=== PATIENT | male | born 1940 | race Caucasian/White ===

== ENCOUNTER 2018-05-01 08:24 | Inpatient (IN) | payer MEDICARE ==
[~2018-05-01] VITALS: Ht 185.4 cm; Wt 104.0 kg
[~2018-05-01 08:24] MED LIST: ATOR10TA PO; BETA2500 PO; CALC500T54 PO; CELE100C PO; GLUC1TAB44 PO; MULT-658 PO; OSEL6SUS2 PO; OSEL75CA PO; VITA400C6 PO
--- NOTE | 2018-05-01 08:52 | RAD ---
CT scan of the head without contrast 05/01/2018 Clinical History: Right-sided weakness. Technique: Unenhanced, contiguous, 5 mm axial sections were obtained through the head. One or more of the following individualized dose reduction techniques were utilized for this study: 1. Automated exposure control. 2. Adjustment of the mA and/or kV according to patient size. 3. Use of iterative reconstruction technique. Findings: No previous imaging studies are available for comparison. There is generalized parenchymal atrophy. Areas of decreased attenuation are seen within the periventricular and subcortical white matter of both cerebral hemispheres consistent with areas of small vessel ischemic disease. No acute parenchymal abnormality is seen. No extra-axial fluid collection is noted. No skull fracture is seen. Impression: No acute intracranial abnormality is seen. This result was called to Dr. Herring at 0846 hours. Electronically signed by: Hussein Madera MD (05/01/2018 8:48 AM) [email or web address]
[2018-05-01 09:08] LABS: BASO % 1 % (0-3); EOS # 0.3 x10^3/uL (0.0-0.7); EOS % 4 % (0-3); HEMATOCRIT 47.2 % (39.0-53.0); HEMOGLOBIN 15.9 g/dL (13.0-17.5); LYMPH # 1.4 x10^3/uL (1.0-4.8); LYMPH % 19 % (24-48); MEAN CORPUSCULAR HEMOGLOBIN 32 pg (25-35); MEAN CORPUSCULAR HGB CONC 34 g/dL (31-37); MEAN CORPUSCULAR VOLUME 94 fL (79-100); MONO # 0.7 x10^3/uL (0.0-1.1); MONO % 10 % (0-9); NEUT # 4.8 x10^3uL (1.8-7.7); NEUT % 66 % (31-73); PLATELET COUNT 157 x10^3/uL (140-400); RED BLOOD COUNT 5.04 x10^6/uL (4.30-5.70); RED CELL DISTRIBUTION WIDTH 13.9 % (11.5-14.5); WHITE BLOOD COUNT 7.3 x10^3/uL (4.0-11.0)
[2018-05-01 09:24] LABS: ALBUMIN 3.8 g/dL (3.4-5.0); ALBUMIN/GLOBULIN RATIO 1.3 (1.0-1.7); CALCIUM 9.3 mg/dL (8.5-10.1); CREATININE 1.1 mg/dL (0.7-1.3); GFR 65.3; POTASSIUM 3.9 mmol/L (3.5-5.1); TOTAL BILIRUBIN 0.9 mg/dL (0.2-1.0); TOTAL PROTEIN 6.8 g/dL (6.4-8.2)
--- NOTE | 2018-05-01 09:57 | PHYS DOC ---
Past History Past Medical History: CAD, Hypertension, Other Past Surgical History: Other Alcohol Use: Rarely Drug Use: None Adult General Chief Complaint Chief Complaint: facial numbness [facility] HPI 77-year-old male patient complaining of right side of face and upper extremity numbness that started at 0745 today. Patient states he felt numbness of right side of face and right upper extremity after he moved his head suddenly without weakness, headache, nausea and vomiting, blurred vision, lower extremity numbness or weakness. Patient denies history of the same problem. Review of Systems Review of Systems Constitutional: Denies fever or chills [] Eyes: Denies change in visual acuity, redness, or eye pain [] HENT: Denies nasal congestion or sore throat [] Respiratory: Denies cough or shortness of breath [] Cardiovascular: No additional information not addressed in HPI [] GI: Denies abdominal pain, nausea, vomiting, bloody stools or diarrhea [] : Denies dysuria or hematuria [] Musculoskeletal: Denies back pain or joint pain [] Integument: Denies rash or skin lesions [] Neurologic: Denies headache, focal weakness , reports sensory changes [] Endocrine: Denies polyuria or polydipsia [] All other systems were reviewed and found to be within normal limits, except as documented in this note. Allergies Allergies Allergies Coded Allergies Type Severity Reaction Last Updated Verified No Known Drug Allergies 06/28/16 No Physical Exam Physical Exam Constitutional: Well developed, well nourished, no acute distress, non-toxic appearance. [] HENT: Normocephalic, atraumatic, bilateral external ears normal, oropharynx moist, no oral exudates, nose normal. [] Eyes: PERRLA, EOMI, conjunctiva normal, no discharge. [] Neck: Normal range of motion, no tenderness, supple, no stridor. [] Cardiovascular: Irregularly irregular rhythm, no murmur [] Lungs & Thorax: Bilateral breath sounds clear to auscultation [] Abdomen: Bowel sounds normal, soft, no tenderness, no masses, no pulsatile masses. [] Skin: Warm, dry, no erythema, no rash. [] Back: No tenderness, no CVA tenderness. [] Extremities: No tenderness, no cyanosis, no clubbing, ROM intact, no edema. [] Neurologic: Alert and oriented X 3, normal motor function, subjective paresthesias of right side of face without paresthesia of right upper extremity , no focal deficits noted. NIH scale of 1 [] Psychologic: Affect normal, judgement normal, mood normal. [] Current Patient Data Lab Results Laboratory Tests Test 05/01/18 08:47 White Blood Count 7.3 x10^3/uL (4.0-11.0) Red Blood Count 5.04 x10^6/uL (4.30-5.70) Hemoglobin 15.9 g/dL (13.0-17.5) Hematocrit 47.2 % (39.0-53.0) Mean Corpuscular Volume 94 fL (79-100) Mean Corpuscular Hemoglobin 32 pg (25-35) Mean Corpuscular Hemoglobin Concent 34 g/dL (31-37) Red Cell Distribution Width 13.9 % (11.5-14.5) Platelet Count 157 x10^3/uL (140-400) Neutrophils (%) (Auto) 66 % (31-73) Lymphocytes (%) (Auto) 19 % (24-48) L Monocytes (%) (Auto) 10 % (0-9) H Eosinophils (%) (Auto) 4 % (0-3) H Basophils (%) (Auto) 1 % (0-3) Neutrophils # (Auto) 4.8 x10^3uL (1.8-7.7) Lymphocytes # (Auto) 1.4 x10^3/uL (1.0-4.8) Monocytes # (Auto) 0.7 x10^3/uL (0.0-1.1) Eosinophils # (Auto) 0.3 x10^3/uL (0.0-0.7) Basophils # (Auto) 0.0 x10^3/uL (0.0-0.2) Prothrombin Time 10.9 SEC (9.4-11.4) Prothrombin Time INR 1.1 (0.9-1.1) PTT 26 SEC (23-33) Sodium Level 138 mmol/L (136-145) Potassium Level 3.9 mmol/L (3.5-5.1) Chloride Level 106 mmol/L (98-107) Carbon Dioxide Level 27 mmol/L (21-32) Anion Gap 5 (6-14) L Blood Urea Nitrogen 17 mg/dL (8-26) Creatinine 1.1 mg/dL (0.7-1.3) Estimated GFR (Cockcroft-Gault) 65.3 BUN/Creatinine Ratio 15 (6-20) Glucose Level 108 mg/dL (70-99) H Calcium Level 9.3 mg/dL (8.5-10.1) Total Bilirubin 0.9 mg/dL (0.2-1.0) Aspartate Amino Transferase (AST) 22 U/L (15-37) Alanine Aminotransferase (ALT) 24 U/L (16-63) Alkaline Phosphatase 103 U/L (46-116) Troponin I Quantitative < 0.017 ng/mL (0-0.055) Total Protein 6.8 g/dL (6.4-8.2) Albumin 3.8 g/dL (3.4-5.0) Albumin/Globulin Ratio 1.3 (1.0-1.7) EKG EKG EKG interpreted by me. EKG at 0 9:15 8 showed atrial fibrillation at rate of 54 , leftward axis, low voltage QRS, no acute ST and T-wave abnormalities Radiology/Procedures Radiology/Procedures [][place] [address] IMAGING REPORT Signed PATIENT: DIAN LEVY ACCOUNT: [id number] : 1940 LOCATION: ER AGE: 77 SEX: M EXAM STATUS: REG ER ORD. PHYSICIAN: HALLE BRITO MD REASON: right-sided weakness PROCEDURE: CT CODE STROKE HEAD WO CT scan of the head without contrast 05/01/2018 Clinical History: Right-sided weakness. Technique: Unenhanced, contiguous, 5 mm axial sections were obtained through the head. One or more of the following individualized dose reduction techniques were utilized for this study: 1. Automated exposure control. 2. Adjustment of the mA and/or kV according to patient size. 3. Use of iterative reconstruction technique. Findings: No previous imaging studies are available for comparison. There is generalized parenchymal atrophy. Areas of decreased attenuation are seen within the periventricular and subcortical white matter of both cerebral hemispheres consistent with areas of small vessel ischemic disease. No acute parenchymal abnormality is seen. No extra-axial fluid collection is noted. No skull fracture is seen. Impression: No acute intracranial abnormality is seen. This result was called to Dr. Brito at 0846 hours. Electronically signed by: Hussein Madera MD (05/01/2018 8:48 AM) [facility] DICTATED AND SIGNED BY: HUSSEIN MADERA MD DATE: 05/01/18 0845 CC: HALLE BRITO MD; KILEY VASQUEZ ~ Course & Med Decision Making Course & Med Decision Making Pertinent Labs and Imaging studies reviewed. (See chart for details) Evaluation of patient in ER showed 77-year-old male patient with complaining of sudden onset of right side of face and upper extremity numbness at 0745 with NIH scale of 1. Code stroke was activated and patient had unremarkable CT head and labs and treated with aspirin. EKG showed atrial fibrillation with rate of 54 without history of atrial fibrillation. Dr. Patterson informed at 1018 and agreed to plan of admission. Plan to consult neurology and cardiology and admit patient to telemetry bed. [] Dragon Disclaimer Dragon Disclaimer This electronic medical record was generated, in whole or in part, using a voice recognition dictation system. Departure Departure: Impression: Primary Impression: TIA (transient ischemic attack) Additional Impressions: Paresthesia Atrial fibrillation Disposition: ADMITTED INPATIENT (At 1015) Condition: STABLE Referrals: KILEY VASQUEZ (PCP) BRIANNA BURROWS MD Patient Instructions: Transient Ischemic Attack Additional Instructions: Follow-up with on-call neurologist in 2 or 3 days Return to ER if not getting better Critical Care Time Critical care time was [60] minutes exclusive of procedures. Problem Qualifiers HALLE BRITO MD May 01, 2018 09:57
[2018-05-01] MEDS ORDERED: ASPIRIN 81 MG TAB.CHEW PO ONE (10:00)
--- NOTE | 2018-05-01 10:35 | EKG ---
[address] [address] Test Date: 2018-05-01 Test Time: 09:59:16 Pat Name: DIAN LEVY Department: Room: Gender: M [employer]ynthetic Department Supervisor: FLORA : 1940 Requested By: HALLE BRITO Order Number: [id number] Reading MD: Matt Perry MD Measurements Intervals [place] Rate: 54 P: LA: QRS: -28 QRSD: 72 T: 3 QT: 452 QTc: 430 Interpretive Statements ATRIAL FIBRILLATION WITH CONTROLLED VENTRICULAR RESPONSE NON-SPECIFIC ST/T CHANGES Electronically Signed On 05-04-2018 9:42:38 CDT by Matt Perry MD
[2018-05-01 14:59] VITALS: BP 119/67
--- NOTE | 2018-05-01 15:14 | HP ---
ADMIT DATE: 05/01/2018 HISTORY OF PRESENT ILLNESS: This is a 77-year-old male patient who came to the Emergency Room complaining of right-sided facial numbness and tingling, right upper extremity numbness that lasted for almost about 3 hours. He denied any nausea or vomiting. Denied any headache. Denied any blurring of vision or weakness. He said that he thought he was sitting in an awkward position, so he took his dog for a walk, but tingling and numbness continued and therefore, he decided to come to the Emergency Room for further evaluation. He has never had experienced something like that, did not have any unsteady gait or double vision. He was extensively investigated in the Emergency Room. His CT scan showed no acute intracranial abnormalities seen and was admitted for further evaluation. While in the Emergency Room, he had an EKG, which showed that he was in atrial fibrillation with slow ventricular response and therefore, he was admitted to consult the community service coordinator and also the neurologist. PAST MEDICAL HISTORY: Significant for hypertension and hyperlipidemia. He apparently was here before in ____ and admitted with acute congestive heart failure and at that time, he was started on aspirin, beta milton and they recommended further ischemic workup. He said that he was admitted to [facility] and was seen by Dr. Brian, although he was actually discharged with non-ST segment elevation myocardial infarction as well as ischemic cardiomyopathy with ejection fraction of 40% and he was transferred at that time to [facility] with the plan at that time to do cardiac catheterization. PAST SURGICAL HISTORY: Significant for prostatectomy, back surgery, bilateral inguinal hernia repair, right total knee arthroplasty, colonoscopy and polypectomy. ALLERGIES: He has no known drug allergies. MEDICATIONS: He is currently on the following medications: He is currently on lisinopril 2.5 mg once a day, Lipitor 20 mg at bedtime, metoprolol tartrate 25 mg twice a day, aspirin 81 mg once a day. He is also on glucosamine chondroitin 1200 mg twice a day, calcium 600 mg twice a day, Centrum Silver 1 tablet once a day, vitamin C 500 mg twice a day and beta carotene 25,000 daily. FAMILY HISTORY: He has one younger brother who has apparently skin cancer and depression. His father at the age of 73 and mother at the age of 88. He does not know the cause of their . SOCIAL HISTORY: He is , has 2 sons. He used to smoke cigars, quit about 8-10 years ago. He continued to drink alcohol. He drinks about 3-4 beers a week. 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 REVIEW OF SYSTEMS: The patient denied any blurring of vision, cataract, glaucoma or macular degeneration. Did complain of however being started to have difficulty hearing, but denied any earache or tinnitus. Denied any nosebleeds, stuffy nose or postnasal drip. Denied any sore throat, sore tongue, toothache, hoarseness of voice or difficulty swallowing. He did say that he intentionally lost about 70 pounds, but denied any nausea, vomiting, diarrhea or constipation. Denied any hematemesis, melena or hematochezia. Denied any dysuria, frequency or hematuria. Did complain of nocturia. He said he goes to the bathroom twice night-time. Denied any chest pain, shortness of breath, orthopnea or paroxysmal nocturnal dyspnea. Denied any cough, phlegm or hemoptysis. Denied any chills, rigors or fever. Denied any dizziness, light-headedness, or vertigo. PHYSICAL EXAMINATION: GENERAL: On arrival to the Emergency Room, he actually looked well and was clearly in no apparent respiratory distress. No pallor, jaundice or cyanosis. No lymphadenopathy, no thyromegaly, no jugular venous distension. No lower limb edema. VITAL SIGNS: His heart rate was 56, blood pressure was 131/77, temperature was 98.1, respiratory rate was 16, and oxygen saturation was 98% on room air. HEAD, EYES, EARS, NOSE AND THROAT: Showed normocephalic, atraumatic. NECK: Supple. HEART: Showed normal first and second sounds. No gallop, rub or murmur. CHEST: Clear to auscultation. No crepitation or rhonchi. ABDOMEN: Distended, soft, nontender. NEUROLOGIC: He is awake, alert, responding appropriately. All his cranial nerves are intact. He moves extremities without difficulty. He ambulates without assistance or assistive devices. By the time I saw him, all the numbness and tingling has completely subsided. He apparently was given aspirin in the Emergency Room. IMAGING DATA: EKG showed that he was in atrial fibrillation with slow ventricular response. ASSESSMENT AND PLAN: The plan is to do 2 more sets of cardiac enzyme. We will arrange for him to have an echocardiogram, bilateral carotid Doppler ultrasound. We will check his fasting lipid profile. We will consult with cardiology team as well as the neurologist. He probably needs to be started on Lovenox or perhaps Eliquis and decide on further management according to the finding. AUGUSTINE BARRERA MD DR: SAMIRA/steven JOB#: [id number] / [id number]
[2018-05-01] MEDS ORDERED: LISI2.5T PO (15:27)
[2018-05-01] MEDS ORDERED: METO25TA4 PO (15:27)
[2018-05-01] MEDS ORDERED: ASPI-630 PO (15:27)
[2018-05-01] MEDS ORDERED: ASCO500C9 PO (15:29)
--- NOTE | 2018-05-01 16:31 | PDOC2 ---
CONSULT Date of Admission DATE: 05/01/18 TIME: 16:29 Reason for Consult: TIA, Atrial fibrillation Problem List Problems Medical Problems: (1) Atrial fibrillation Status: Acute History of Present Illness Mr Martinez is a 77 year old male who presents with complaints of sudden onset of numbness of his left face, shoulder and part way down his right arm. Onset was at rest. No exacerbating or relieving factors. He reports at this time the numbness has mostly resolved with some residual in his right neck. He was noted to be in atrial fibrillation which he reports he was unaware of , so a consult was called. He denies any chest discomfort, dyspnea, congestive symptoms, or syncope. He reports rare lightheadedness on standing too quickly. He denies any palpitations. He does report some increased fatigue over the last 1-2 weeks but otherwise denies any significant decrease in functionality. Past Medical History Cardiovascular: HTN, hyperlipidemia, NSTEMI, ICM, CHF Respiratory: influenza HEENT: glaucoma Renal/: Prostate Ca. Musculoskeletal: osteoarthritis Echo 09/10/16 Left ventricle systolic function is low normal. The Ejection Fraction is 50-55%. There is normal LV segmental wall motion. Tissue Doppler imaging reveals abnormal (mild) left ventricular diastolic dysfunction. 07/01/16 FINDINGS 1. Hemodynamics: Left ventricular end-diastolic pressure of 11 mmHg. No pullback gradient across the aortic valve. 2. Left ventriculography: Mild global left ventricular systolic dysfunction with ejection fraction estimated at 40-45%. No significant mitral regurgitation seen. 3. Coronary angiography: a. The left main coronary artery arose from the left sinus of Valsalva, gave rise to the left anterior descending and left circumflex arteries and did not show any significant stenosis. b. The left anterior descending artery did not show any significant stenosis. c. The left circumflex artery did not show any significant stenosis. d. The right coronary artery was a large and dominant vessel arising from the right sinus of Valsalva that did showed 30% stenosis in the midsegment. Conclusion 1. Nonobstructive coronary artery disease 2. Mild global left ventricular systolic dysfunction with ejection fraction estimated at 40-45% Recommendations Medical Therapy Past Surgical History Hernia Repair, Other (knee replacement, prostatectomy) Family History non contributory Social History non smoker, no significant ETOH, no illicit drugs Current Medications Current Medications Aspirin (Children'S Aspirin) 324 mg 1X ONCE PO Last administered on 05/01/18at 10:00; Start 05/01/18 at 10:00; Stop 05/01/18 at 10:01; Status DC Apixaban (Eliquis) 5 mg BID PO ; Start 05/01/18 at 21:00 Metoprolol Tartrate (Lopressor) 25 mg BID PO ; Start 05/01/18 at 21:00 Vitamin E 400 unit DAILYWSUP PO ; Start 05/01/18 at 17:00 Aspirin (Children'S Aspirin) 81 mg DAILYWSUP PO ; Start 05/01/18 at 17:00 Atorvastatin Calcium (Lipitor) 20 mg QHS PO ; Start 05/01/18 at 21:00 Non-Formulary Medication (Beta-Carotene (Beta Carotene)) 25,000 unit DAILY PO ; Start 05/02/18 at 09:00; Status UNV Calcium Carbonate/ Glycine (Tums) 500 mg DAILY PO ; Start 05/02/18 at 09:00 Glucosamine/ Chondroitin (Glucosamine-Chondroitin 500/400mg) 1 cap BID PO ; Start 05/01/18 at 21:00 Lisinopril (Prinivil) 2.5 mg DAILY PO ; Start 05/02/18 at 09:00 Multivitamins/ Calcium (Thera-M Plus) 1 tab DAILY PO ; Start 05/02/18 at 09:00 Ascorbic Acid (Vitamin C) 1,000 mg DAILY PO ; Start 05/02/18 at 09:00 Active Scripts Active Reported Vitamin C (Ascorbic Acid) 500 Mg Capsule 1,000 Mg PO DAILY Lisinopril 2.5 Mg Tablet 1 Tab PO DAILY Metoprolol Tartrate 25 Mg Tablet 1 Tab PO BID Aspirin 81 Mg Tab.chew 81 Mg PO DAILYWSUP Skyohwx-Qyioq-Kow Complex Cplt (Gluc/Brandon-Msm#1/Vit C/Ryan/Bor) 1 Each Tablet 1 Each PO BID Vitamin E (Vitamin E (Dl,Tocopheryl Acet)) 400 Unit Capsule 400 Unit PO DAILYWSUP Centrum Silver Tablet (Multivits-Min/Fa/Lycopene/Lut) 1 Each Tablet 1 Each PO DAILY Beta Carotene (Beta-Carotene) 25,000 Unit Capsule 25,000 Unit PO DAILY Calcium (Calcium Carbonate) 500 Mg Tab.chew 500 Mg PO DAILY Lipitor (Atorvastatin Calcium) 10 Mg Tablet 2 Tab PO QHS Allergies: Coded Allergies: No Known Drug Allergies (Unverified , 06/28/16) Review of System as per HPI General: Alert, Oriented X3, Cooperative, No acute distress HEENT: Atraumatic, EOMI, Other (no carotid bruits) Lungs: Clear to auscultation Heart: Other (irregular rate and rhythm without gallops, clicks or rubs) Abdomen: Normal bowel sounds, Soft, No tenderness Extremities: No cyanosis, Normal pulses, Other (trace edeam) Neuro: Normal speech, Strength at 5/5 X4 ext Psych/Mental Status: Mental status NL, Mood NL VITALS Vital Signs Date Time Temp Pulse Resp B/P (MAP) Pulse Ox O2 Delivery O2 Flow Rate FiO2 05/01/18 14:59 58 18 119/67 (84) 97 Labs Laboratory Tests Test 05/01/18 08:47 05/01/18 13:16 White Blood Count 7.3 x10^3/uL (4.0-11.0) Red Blood Count 5.04 x10^6/uL (4.30-5.70) Hemoglobin 15.9 g/dL (13.0-17.5) Hematocrit 47.2 % (39.0-53.0) Mean Corpuscular Volume 94 fL (79-100) Mean Corpuscular Hemoglobin 32 pg (25-35) Mean Corpuscular Hemoglobin Concent 34 g/dL (31-37) Red Cell Distribution Width 13.9 % (11.5-14.5) Platelet Count 157 x10^3/uL (140-400) Neutrophils (%) (Auto) 66 % (31-73) Lymphocytes (%) (Auto) 19 % (24-48) Monocytes (%) (Auto) 10 % (0-9) Eosinophils (%) (Auto) 4 % (0-3) Basophils (%) (Auto) 1 % (0-3) Neutrophils # (Auto) 4.8 x10^3uL (1.8-7.7) Lymphocytes # (Auto) 1.4 x10^3/uL (1.0-4.8) Monocytes # (Auto) 0.7 x10^3/uL (0.0-1.1) Eosinophils # (Auto) 0.3 x10^3/uL (0.0-0.7) Basophils # (Auto) 0.0 x10^3/uL (0.0-0.2) Prothrombin Time 10.9 SEC (9.4-11.4) Prothromb Time International Ratio 1.1 (0.9-1.1) Activated Partial Thromboplast Time 26 SEC (23-33) Sodium Level 138 mmol/L (136-145) Potassium Level 3.9 mmol/L (3.5-5.1) Chloride Level 106 mmol/L (98-107) Carbon Dioxide Level 27 mmol/L (21-32) Anion Gap 5 (6-14) Blood Urea Nitrogen 17 mg/dL (8-26) Creatinine 1.1 mg/dL (0.7-1.3) Estimated GFR (Cockcroft-Gault) 65.3 BUN/Creatinine Ratio 15 (6-20) Glucose Level 108 mg/dL (70-99) Calcium Level 9.3 mg/dL (8.5-10.1) Total Bilirubin 0.9 mg/dL (0.2-1.0) Aspartate Amino Transf (AST/SGOT) 22 U/L (15-37) Alanine Aminotransferase (ALT/SGPT) 24 U/L (16-63) Alkaline Phosphatase 103 U/L (46-116) Troponin I Quantitative < 0.017 ng/mL (0-0.055) < 0.017 ng/mL (0-0.055) Total Protein 6.8 g/dL (6.4-8.2) Albumin 3.8 g/dL (3.4-5.0) Albumin/Globulin Ratio 1.3 (1.0-1.7) Images CT head - Impression: No acute intracranial abnormality is seen. EKG - unavailable Assessment/Plan 1. Atrial fibrillation with controlled ventricular response, suspect this in not new - Agree with Eliquis and continue rate control. Suggest outpatient MCT as he is somewhat bradycardic at this point. Will check echo. 2. TIA - neuro consulted 3. hypertension - resume home meds 4. hyperlipidemia - check lipids, continue statin. CAROLINA CONNOR APRN May 01, 2018 16:31
[2018-05-01] MEDS ORDERED: ASPIRIN 81 MG TAB.CHEW PO SCH (17:00)
[2018-05-01] MEDS ORDERED: VITAMIN E. 400 UNIT CAPSULE. PO SCH (17:00)
--- NOTE | 2018-05-01 18:31 | RAD ---
Bilateral Duplex Carotid Ultrasound Indication: Possible TIA Procedure: Two dimensional, duplex and color-flow images and spectral analysis are obtained of the carotid arteries bilaterally. Vertebral arteries are also imaged. Findings: Right Carotid: The 2 D images demonstrate mild plaquing with no evidence of significant narrowing. The color images are normal On the right ICA peak systolic velocity is 55 cm/sec. I The ICA/CCA ratio is 0.6 . Left Carotid: The 2 D images demonstrate mild plaquing with no evidence of significant narrowing. The color images are normal without turbulence or jet effect. On the left ICA peak systolic velocity is 38 cm/sec. The ICA/CCA ratio is 0.5 . There is a high bifurcation and the distal internal carotid artery on the left cannot be visualized. Vertebral Arteries: The right vertebral artery is normal with normal direction of flow. The left vertebral artery is normal with normal direction of flow. Impression: Normal carotid ultrasound with no hemodynamically significant stenosis. PQRS Compliance Statement - Stenosis calculations for CT, MR and conventional angiography are based upon measurement of the distal ICA diameter in accordance with the NASCET methodology. Stenosis calculations for carotid ultrasound studies are derived from validated velocity criteria which are known to correlate with the NASCET methodology. Electronically signed by: Javed Narvaez III, MD (05/01/2018 6:29 PM) [facility]
[2018-05-01 20:03] VITALS: BP 140/74
[2018-05-01] MEDS: GLUCOSAMINE/CHOND 500/400MG CAPSULE PO SCH (20:19)
[2018-05-01] MEDS: APIXABAN 5 MG TABLET. PO SCH (20:19)
[2018-05-01] MEDS ORDERED: ATORVASTATIN CALCIUM 20 MG TABLET PO SCH (21:00)
[2018-05-01] MEDS: METOPROLOL TART IMMED RELEASE 25 MG TABLET PO SCH (21:00)
[2018-05-02 05:53] LABS: CALCIUM 8.8 mg/dL (8.5-10.1); GFR 72.8; POTASSIUM 3.9 mmol/L (3.5-5.1)
[2018-05-02 06:05] VITALS: BP 108/68
[2018-05-02 08:16] VITALS: BP 104/65
[2018-05-02] MEDS: APIXABAN 5 MG TABLET. PO SCH (08:50)
[2018-05-02] MEDS: GLUCOSAMINE/CHOND 500/400MG CAPSULE PO SCH (08:51)
[2018-05-02] MEDS: METOPROLOL TART IMMED RELEASE 25 MG TABLET PO SCH (08:52)
[2018-05-02] MEDS ORDERED: LISINOPRIL 2.5 MG TABLET PO SCH (09:00)
[2018-05-02] MEDS ORDERED: MULTIVITAMIN with MINERAL TABLET. PO SCH (09:00)
[2018-05-02] MEDS ORDERED: BETA CAROTENE 25000 UNIT PO SCH (09:00)
[2018-05-02] MEDS ORDERED: ASCORBIC ACID 500 MG TABLET PO SCH (09:00)
[2018-05-02] MEDS ORDERED: CALCIUM CARBONATE 500 MG TAB.CHEW PO SCH (09:00)
[2018-05-02] MEDS ORDERED: CALCIUM CARBONATE 500 MG TAB.CHEW PO PRN (09:00)
[2018-05-02 11:00] VITALS: BP 115/77
--- NOTE | 2018-05-02 13:01 | PN ---
DATE: SUBJECTIVE: The patient denies any new medical neurological complaints. He denies headaches, visual disturbances, numbness, paresthesia, weakness or vertigo, dysarthria, dysphagia, or diplopia. OBJECTIVE: GENERAL: Well-developed, well-nourished white male, not in acute distress. VITAL SIGNS: Blood pressure 153/77, respiratory rate 18, pulse is 59, temperature 98.7, oxygen saturation is 97% on room air. HEENT: Normocephalic, atraumatic, otherwise unremarkable. NECK: Supple. Negative for carotid bruit, JVD, lymphadenopathy, or thyromegaly. LUNGS: Are clear to A and P. CARDIOVASCULAR: Regular rhythm, normal S1, S2. ABDOMEN: Soft. Bowel sounds positive. EXTREMITIES: Are negative for cyanosis, clubbing, or pitting edema. NEUROLOGIC: Normal mental status and intact cranial nerves. There is no focal motor or sensory deficit. Deep tendon reflexes are symmetric and hypoactive with absent Achilles responses. Gait and coordinations are normal. DIAGNOSTIC DATA: Carotid Doppler study revealed no evidence of significant stenosis. Echocardiogram was performed this morning, but the result is still pending. IMPRESSION: 1. Possible transient ischemic attack -- resolved without neurological deficit. 2. Multiple medical problems includes hypertension, hyperlipidemia, history of myocardial infarction without evidence of coronary artery disease by previous cardiac catheterization. 3. Atrial fibrillation, may have contributed to the transient ischemic attack. RECOMMENDATION: 1. Continue with current management initiated by Dr. Patterson including aspirin and Eliquis. 2. Continue with Cardiology recommendations for atrial fibrillation, otherwise the patient is neurologically intact. M Dana BURROWS MD DR: PORFIRIO/steven JOB#: [id number] / [id number]
[2018-05-02] MEDS ORDERED: APIX5TAB5 PO (14:03)
--- NOTE | 2018-05-02 15:22 | DS ---
DATE OF DISCHARGE: 05/02/2018 HISTORY OF PRESENT ILLNESS: The patient is a 77-year-old male patient, who came in yesterday with complaint of tingling and numbness in his right side of the face and right side of the right upper arm that has resolved without any residual neurological deficit. He was also found to be in atrial fibrillation with a slow ventricular response, so he was started on Eliquis. He was evaluated by the, does have a CT scan of the head which was unremarkable with no acute intracranial abnormality seen, has bilateral carotid Doppler ultrasound, which basically showed normal carotid ultrasound with no hemodynamically significant stenosis. He did have also an echocardiogram, the results of which is still pending at the time of this dictation. PHYSICAL EXAMINATION: GENERAL: When I examined him this afternoon, he was sitting, propped up comfortably in bed, in no apparent distress. He has no pallor, jaundice, cyanosis, or thyromegaly. No jugular venous distension. No lower limb edema. VITAL SIGNS: Her heart rate was 59, blood pressure was 115/77, temperature was 98.7, respiratory rate was 18, and oxygen saturation was 97%. HEENT: Examination of the head, eyes, ears, nose and throat showed normocephalic, atraumatic. NECK: Supple. HEART: Showed normal first and second heart sounds with no gallop, rub or murmur. CHEST: Clear to auscultation. No crepitation or rhonchi. ABDOMEN: Distended, soft, nontender. No guarding or rigidity. No organomegaly. Hernial orifices are intact. Bowel sounds normal. NEUROLOGIC: He was awake, alert, responding appropriately. All his cranial nerves are intact. EXTREMITIES: He moves extremities without difficulty. He ambulates without assistance or assistive devices. LABORATORY DATA: He has 3 sets of cardiac enzymes that were negative and ruled out myocardial infarction. His serum triglyceride was 74, total cholesterol 147, LDL was 79, VLDL was 14, and HDL was 54, ratio was 2. His serum sodium was 140, potassium 3.9, chloride 109, bicarbonate 26, anion gap of 5, BUN 15, creatinine 1, estimated GFR was 73 mL per minute. Her glucose was 108 and calcium was 8.8. DISCHARGE MEDICATIONS: The patient was discharged home to continue on following medications; apixaban 5 mg twice a day, ascorbic acid 5000 mg daily, aspirin 81 mg once a day, atorvastatin calcium 20 mg at bedtime, beta carotene 25,000 units daily, calcium carbonate 500 mg once a day, glucosamine chondroitin sulfate 1 tablet twice a day, lisinopril 2.5 mg once a day, metoprolol tartrate 25 mg twice a day, multivitamin with mineral 1 tablet once a day, and vitamin E 400 mg once a day. FINAL DISCHARGE DIAGNOSES: 1. Atrial fibrillation with controlled ventricular response. We added Eliquis for stroke prevention. 2. Transient ischemic attack, resolved with no residual neurological deficit. 3. Hypertension. 4. Hyperlipidemia. AUGUSTINE BARRERA MD DR: SAMIRA/steven JOB#: [id number] / [id number]
--- NOTE | 2018-05-02 16:28 | CONS ---
DATE OF CONSULTATION: 05/01/2018 NEUROLOGY CONSULTATION REFERRING PHYSICIAN: Dr. Patterson. REASON FOR CONSULTATION: Rule out TIA versus stroke. HISTORY OF PRESENT ILLNESS: This is a 77-year-old right-handed male, who was admitted through Emergency Room today after he presented with 3-hour of right facial numbness and paresthesia. The patient never had this problem before. He denies headaches, visual disturbances, slurred speech, weakness or dizziness. He denies chest pain, shortness of breath, palpitation, dysarthria or dysphagia. In the Emergency Room, the patient was found to have atrial fibrillation. The patient denies any previous cardiac arrhythmias. Initial nonenhanced head CT scan revealed no evidence of acute intracranial process, but showed small vessel ischemic changes in the white matter bilaterally. PAST MEDICAL HISTORY: Significant for hypertension, hyperlipidemia, congestive heart failure, history of myocardial infarction 2 years ago. He stated his cardiac catheterization revealed no evidence of coronary artery disease; however, a previous echocardiogram revealed ejection fraction of 40%. The patient has not been followed by a licensed marine engineer in the last 2 years. PAST SURGICAL HISTORY: Significant for lower back spine surgery, bilateral inguinal hernia repair, right total knee replacement, and colonoscopy required polypectomy. FAMILY HISTORY: Noncontributory. SOCIAL HISTORY: The patient is . He has 2 sons. He smokes cigars, but he quit 10 years ago. He drinks about 3 beers weekly. CURRENT HOME MEDICATIONS: Lisinopril 2.5 mg daily, Lipitor 20 mg daily, aspirin 81 mg daily, vitamin E and calcium and multivitamins. ALLERGIES: No known drug allergies. REVIEW OF SYSTEMS: A 10-point review of system was performed as mentioned above in the history of present illness, otherwise unremarkable. PHYSICAL EXAMINATION: GENERAL: Moderately obese white male, not in acute distress. He weighs 250 pounds. VITAL SIGNS: Blood pressure 119/67, respiratory rate 18, pulse is 58, oxygen saturation is 97% on room air. The pulse is irregular. HEENT: Normocephalic, atraumatic, otherwise unremarkable. NECK: Supple. Negative for carotid bruit, lymphadenopathy or thyromegaly. LUNGS: Clear to A and P. CARDIOVASCULAR: Regular rhythm. Normal S1, S2. There is no S3, S4 or murmur. ABDOMEN: Soft. Bowel sounds positive. EXTREMITIES: Negative for cyanosis, clubbing or pitting edema. NEUROLOGIC: Mental status: The patient is alert and oriented x 3. The speech is fluent. There is no language dysfunction. Memory, judgment, and abstract thinking are normal. The patient denies hallucination or delusion. Cranial nerves: Visual casillas are full. The pupils are reactive to light and accommodation. The extraocular movements are intact. There is no nystagmus. There is no facial motor or sensory deficit. Hearing is diminished over the right side. The palate is elevated symmetrically. Sternocleidomastoid muscles are powerful bilaterally. The patient shrugs his shoulders symmetrically, protrudes his tongue in the midline without fasciculation or atrophy. Motor examination: No focal muscle bulk was seen. The tone is normal. The strength is 5/5 throughout. Sensory examination: Revealed normal pinprick, light touch, vibratory and position senses. Deep tendon reflexes were symmetric and hypoactive with absent Achilles responses. Romberg sign is positive. Gait and coordinations are normal. LABORATORY DATA: CBC revealed white blood cells of 7300, hemoglobin 15.9, hematocrit 47.2, and platelet count 157,000. Chemistry revealed a sodium of 138, potassium 3.9, chloride 106, CO2 of 27, BUN 17, creatinine 1.1, glucose 108, calcium 9.3. Liver enzymes are normal and troponin level is normal. Liver enzymes are normal and troponin level is normal. Coagulation revealed PT 10.9 and INR of 1.1. IMPRESSION: 1. A 3-hour history of right facial numbness and paresthesia - resolved with otherwise and nonfocal neurological examination. Rule out transient ischemic attack. 2. Atrial fibrillation with slow ventricular response. The onset is uncertain, may have contributed to #1. 3. Multiple medical problems include history of hypertension, hyperlipidemia, remote myocardial infarction, gastroesophageal reflux disease, and chronic lower back pain. RECOMMENDATIONS: 1. Agree with Dr. Patterson's management with Eliquis and aspirin for atrial fibrillation. 2. We will obtain a carotid Doppler study and echocardiogram with bubble. 3. Echocardiogram and check cardiac enzymes. 4. Cardiology consult. M Dana BURROWS MD DR: PORFIRIO/steven JOB#: [id number] / [id number]
--- NOTE | 2018-05-03 08:45 | CARD ---
MR#: [id number] Date of Study: 05/02/2018 Ordering Physician: CAROLINA CONNOR, Referring Physician: AUGUSTINE BARRERA Tech: KUMAR Martell APPROVED REPORT EXAM: Two-dimensional and M-mode echocardiogram with Doppler and color Doppler. Other Information Quality : AverageHR: 71bpm Technically limited study due to body habitus. INDICATION Atrial Fibrillation 2D DIMENSIONS Left Atrium(2D)3.9 (1.6-4.0cm)IVSd1.5 (0.7-1.1cm) Aortic Root(2D)3.7 (2.0-3.7cm)LVDd3.9 (3.9-5.9cm) LVOT Diameter2.6 (1.8-2.4cm)PWd1.5 (0.7-1.1cm) LVDs2.8 (2.5-4.0cm)FS (%) 27.3 % SV35.7 mlLVEF(%)53.7 (>50%) Aortic Valve AoV Peak Kemal.105.1cm/sAoV VTI24.0cm AO Peak GR.4.4mmHgLVOT Peak Kemal.65.9cm/s LVOT VTI 15.33cmAO Mean GR.3mmHg ANNELIESE (VMAX)3.82gr6NUK (VTI)3.30cm2 Mitral Valve MV E Fzmzbzle438.8cm/sMV DECEL NLWW484ko MV A Gygzyrcm90.0cm/sE/A Ratio3.0 Pulmonary Valve PV Peak Aofgdmqn932.8cm/sPV Peak Grad.4mmHg Tricuspid Valve TR P. Bzmlgqmm164vu/sTR Peak Gr.30mmHg LEFT VENTRICLE The left ventricle is normal size. There is moderate concentric left ventricular hypertrophy. Left ve ntricle systolic function is low normal. The Ejection Fraction is 50-55%. There is normal LV segmenta l wall motion. Tissue Doppler imaging reveals moderate left ventricular diastolic dysfunction. RIGHT VENTRICLE The right ventricle is normal size. The right ventricular systolic function is normal. ATRIA The left atrium is mildly dilated. The right atrium is mildly dilated. The interatrial septum is inta ct with no evidence for an atrial septal defect or patent foramen ovale as noted on 2-D or Doppler im aging. AORTIC VALVE The aortic valve is trileaflet and sclerotic. Doppler and Color Flow revealed no significant aortic r egurgitation. There is no significant aortic valvular stenosis. There is no aortic valvular vegetatio n. MITRAL VALVE The mitral valve is normal in structure. There is no evidence of mitral valve prolapse. There is no m itral valve stenosis. Doppler and Color-flow revealed trace mitral regurgitation. TRICUSPID VALVE The tricuspid valve leaflets are thickened , but open well. Doppler and Color Flow revealed trace tri cuspid regurgitation. The pulmonary artery systolic pressure is estimated at 40 mmHg. There is no tr icuspid valve stenosis. PULMONIC VALVE The pulmonic valve is not well visualized. Doppler and Color Flow revealed no pulmonic valvular regur gitation. There is no pulmonic valvular stenosis. GREAT VESSELS The aortic root is normal in size. The IVC was not visualized. PERICARDIAL EFFUSION There is no pleural effusion. There is no evidence of significant pericardial effusion. Critical Notification Critical Value: No <Conclusion> Left ventricle systolic function is low normal. The Ejection Fraction is 50-55%. There is normal LV segmental wall motion. Tissue Doppler imaging reveals moderate left ventricular diastolic dysfunction. Doppler and Color Flow revealed trace tricuspid regurgitation. The pulmonary artery systolic pressure is estimated at 40 mmHg. Signed by : Matt Perry, Electronically Approved : 05/03/2018 08:45:10
== END 2018-05-02 14:40 | disposition home or self-care (01) | DRG 309 ==
LOC: ER 08:24 → ICU 11:33
PROVIDERS: ADMIT Internal Medicine; ATTEND Internal Medicine
DX: I48.91 Unspecified atrial fibrillation (principal); G45.9 Transient cerebral ischemic attack, unspecified; E78.5 Hyperlipidemia, unspecified; H40.9 Unspecified glaucoma; I11.0 Hypertensive heart disease with heart failure; I25.10 Atherosclerotic heart disease of native coronary artery without angina pectoris; I25.2 Old myocardial infarction; I25.5 Ischemic cardiomyopathy; I50.9 Heart failure, unspecified; M19.90 Unspecified osteoarthritis, unspecified site; M54.5 Low back pain; G89.29 Other chronic pain; K21.9 Gastro-esophageal reflux disease without esophagitis; Z96.651 Presence of right artificial knee joint; Z79.82 Long term (current) use of aspirin; Z79.899 Other long term (current) drug therapy; Z80.8 Family history of malignant neoplasm of other organs or systems; Z81.8 Family history of other mental and behavioral disorders; Z85.46 Personal history of malignant neoplasm of prostate; Z86.73 Personal history of transient ischemic attack (TIA), and cerebral infarction without residual deficits; Z87.891 Personal history of nicotine dependence
CPT/HCPCS: 36415; 70450; 80048; 80053; 80061; 84484; 85025; 85610; 85730; 87641; 93005; 93306; 93880; 92610; 99291-25

== ENCOUNTER → 2018-11-12 | Outpatient (CLI) | payer MEDICARE ==
[~2018-11-12] MED LIST changes: +APIX5TAB5 PO; +ASCO500C9 PO; +ASPI-630 PO; +LISI2.5T PO; +METO25TA4 PO
== END | disposition home or self-care (01) ==
LOC: LAB 10:38
PROVIDERS: ATTEND Urology
DX: Z12.5 Encounter for screening for malignant neoplasm of prostate (principal)
CPT/HCPCS: G0103

== ENCOUNTER → 2018-12-08 | Outpatient (CLI) | payer MEDICARE ==
--- NOTE | 2018-12-08 09:56 | CARD ---
MR#: [id number] Date of Study: 12/08/2018 Ordering Physician: DERRICK MARTINEZ, Referring Physician: DERRICK MARTINEZ, Tech: Vesta Peoples RDCS APPROVED REPORT EXAM: Two-dimensional and M-mode echocardiogram with Doppler and color Doppler. Other Information Quality : GoodHR: 57bpm Rhythm : Other INDICATION SOA 2D DIMENSIONS RVDd4.2 (2.9-3.5cm)Left Atrium(2D)3.8 (1.6-4.0cm) IVSd1.2 (0.7-1.1cm)Aortic Root(2D)3.8 (2.0-3.7cm) LVDd5.1 (3.9-5.9cm)LVOT Diameter2.5 (1.8-2.4cm) PWd0.9 (0.7-1.1cm)LVDs3.7 (2.5-4.0cm) FS (%) 27.1 %SV65.3 ml LVEF(%)52.5 (>50%) M-Mode DIMENSIONS Left Atrium(MM)3.51 (2.5-4.0cm)Aortic Root3.75 (2.2-3.7cm) Aortic Valve AoV Peak Kemal.107.1cm/sAoV VTI18.9cm AO Peak GR.4.6mmHgLVOT Peak Kemal.66.3cm/s LVOT VTI 12.86cmAO Mean GR.2mmHg ANNELIESE (VMAX)3.01ax9YWS (VTI)3.35cm2 Mitral Valve MV E Hnusvyop96.0cm/sMV DECEL ZALA043eq MV A Egvkkyfo58.3cm/sE/A Ratio3.0 MV A Eroilkkv29tw Pulmonary Valve PV Peak Awdkuefv35.6cm/sPV Peak Grad.3mmHg Tricuspid Valve TR P. Loarjrkv480cn/sRAP PXLXPSIR51uoVm TR Peak Gr.00rzItRNRN40hiOh LEFT VENTRICLE The left ventricle is normal size. There is borderline to mild concentric left ventricular hypertroph y. The left ventricular systolic function is normal. The Ejection Fraction is 55%. There is normal LV segmental wall motion. Transmitral Doppler flow pattern is Grade III-reversible restrictive diastoli c dysfunction. RIGHT VENTRICLE The right ventricle is mildly dilated. There is normal right ventricular wall thickness. The right ve ntricular systolic function is normal. ATRIA The left atrium size is normal. The right atrium is mildly dilated. The interatrial septum is intact with no evidence for an atrial septal defect or patent foramen ovale as noted on 2-D or Doppler imagi ng. AORTIC VALVE The aortic valve is mildly calcified. The aortic valve is trileaflet. Doppler and Color Flow revealed no significant aortic regurgitation. There is no significant aortic valvular stenosis. MITRAL VALVE The mitral valve is normal in structure and function. There is no evidence of mitral valve prolapse. There is no mitral valve stenosis. Doppler and Color-flow revealed trace mitral regurgitation. TRICUSPID VALVE The tricuspid valve is normal in structure and function. Doppler and Color Flow revealed trace tricus pid regurgitation. There is mild pulmonary hypertension. The PA pressure was estimated at 39 mmHg. Th ere is no tricuspid valve prolapse or vegetation. There is no tricuspid valve stenosis. PULMONIC VALVE Pulmonic valve not well visualized. GREAT VESSELS The aortic root is mildly enlarged. The ascending aorta is Mildly dilated. The IVC is dilated. PERICARDIAL EFFUSION There is no evidence of significant pericardial effusion. Critical Notification Critical Value: No <Conclusion> The left ventricular systolic function is normal. The Ejection Fraction is 55%. There is normal LV segmental wall motion. Trace mitral regurgitation. Trace tricuspid regurgitation. There is mild pulmonary hypertension. The PA pressure was estimated at 39 mmHg. There is no evidence of significant pericardial effusion. Signed by : Ethan Reina, Electronically Approved : 12/08/2018 09:54:14
== END | disposition home or self-care (01) ==
LOC: ECHO 07:57
PROVIDERS: ATTEND Internal Medicine Cardiovascular Disease
DX: I21.4 Non-ST elevation (NSTEMI) myocardial infarction (principal); I27.20 Pulmonary hypertension, unspecified
CPT/HCPCS: 93306

== ENCOUNTER 2019-04-24 19:22 | Emergency (ER) | payer MEDICARE ==
[~2019-04-24] VITALS: Ht 185.4 cm; Wt 106.0 kg
--- NOTE | 2019-04-24 19:24 | ED.ADGEN ---
Past History Past Medical History: CAD, Hypertension, Other Past Surgical History: Other Alcohol Use: Rarely Drug Use: None Adult General Chief Complaint Chief Complaint ".. I got the small varicose veins but this one little cluster got nicked and would not quit bleeding.. I am on aspirin and Eliquis.. .. 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 Patient has active bleeding that has not resolved with a pressure dressing applied by his neighbor who is a nurse. Patient has several varicosities on his lower legs. Has multiple areas of scratches and abrasions from yard work. Site was cleaned with Betadine. A Band-Aid with Kerlix applied. However when patient went to the bathroom before discharge he had re-bleeding through the new dressing. Review of Systems Review of Systems Constitutional: Denies fever or chills [] Eyes: Denies change in visual acuity, redness, or eye pain [] HENT: Denies nasal congestion or sore throat [] Respiratory: Denies cough or shortness of breath [] Cardiovascular: No additional information not addressed in HPI [] GI: Denies abdominal pain, nausea, vomiting, bloody stools or diarrhea [] : Denies dysuria or hematuria [] Musculoskeletal: Denies back pain or joint pain [] Integument: Denies rash or skin lesions []bleeding from leg varicosity Neurologic: Denies headache, focal weakness or sensory changes [] Endocrine: Denies polyuria or polydipsia [] All other systems were reviewed and found to be within normal limits, except as documented in this note. Family History Family History Noncontributory Current Medications Current Medications Current Medications Medications (Trade) Dose Ordered Sig/Janell Start Time Stop Time Status Last Admin Dose Admin Bacitracin (Bacitracin Topical Pkt) 1 pkt 1X ONCE 04/24/19 19:45 04/24/19 19:59 DC 04/24/19 20:14 1 PKT Diphtheria/ Tetanus/Acell Pertussis (Boostrix) 0.5 ml ONCE ONCE 04/24/19 20:15 04/24/19 20:16 DC 04/24/19 20:15 0.5 ML Gelatin (Gelfoam Size 12-7mm) 1 each STK-MED ONCE 04/24/19 21:01 6/22/19 21:02 DC Gelatin (Gelfoam Size 100) 1 each 1X ONCE 04/24/19 21:30 04/24/19 21:31 DC Lidocaine HCl 20 ml 1X ONCE 04/24/19 20:30 04/24/19 20:32 DC Lidocaine/ Epinephrine (Xylocaine 1%-Epi 1:100,000) 20 ml 1X ONCE 04/24/19 20:45 04/24/19 20:46 DC Tetanus/ Diphtheria Toxoids Adsorbed (Tenivac Vial) 0.5 ml ONCE ONCE 04/24/19 19:45 04/24/19 19:59 DC Allergies Allergies Allergies Coded Allergies Type Severity Reaction Last Updated Verified No Known Drug Allergies 06/28/16 No Physical Exam Physical Exam Constitutional: Well developed, well nourished, ejbw-gz-bxaqnrcy distress, non- toxic appearance. [] HENT: Normocephalic, atraumatic, bilateral external ears normal, oropharynx moist, no oral exudates, nose normal. [] Eyes: PERRLA, EOMI, conjunctiva normal, no discharge. [] Neck: Normal range of motion, no tenderness, supple, no stridor. [] Cardiovascular: Irregular Heart rate and irregular rhythm, no murmur [] Lungs & Thorax: Bilateral breath sounds with apex auscultation [] Abdomen: Bowel sounds normal, soft, no tenderness, no masses, no pulsatile masses. [] Skin: Warm, dry, no erythema, no rash. [] Back: No tenderness, no CVA tenderness. [] Extremities: No tenderness, no cyanosis, no clubbing, ROM intact, no edema. [] Varicosities. Bleeding at site of cluster of varicosities Neurologic: Alert and oriented X 3, normal motor function, normal sensory function, no focal deficits noted. [] Psychologic: Affect normal, judgement normal, mood normal. [] Current Patient Data Vital Signs Vital Signs Date Time Temp Pulse Resp B/P (MAP) Pulse Ox O2 Delivery O2 Flow Rate FiO2 04/24/19 20:16 67 20 136/78 (97) 97 Room Air 04/24/19 19:25 98.2 EKG EKG [] Radiology/Procedures Radiology/Procedures [] Course & Med Decision Making Course & Med Decision Making Pertinent Labs and Imaging studies reviewed. (See chart for details) Pt. in process of discharge.. and re- bleed through the dressing. Procedure note. - Suture bleeding varicosity . Area cleaned with Betadine . Ejected site with lidocaine with epinephrine. Overs sutured area x 10 x 4-0 Vicryl sutures and jell foam dressing applied with antibiotic ointment. She pelon vate leg tonight at home. Patient to hold aspirin tonight and hold his Eliquis. Return if any concerns. [] Final Impression Final Impression 1. Bleeding Varicosity[] Dragon Disclaimer Dragon Disclaimer This electronic medical record was generated, in whole or in part, using a voice recognition dictation system. 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 Discharge Information Condition at Discharge: Improved, Stable Disposition/Orders: D/C to Home Dischare Medications Current Medications Tetanus/ Diphtheria Toxoids Adsorbed (Tenivac Vial) 0.5 ml ONCE ONCE VAX IM ; Start 04/24/19 at 19:45; Stop 04/24/19 at 19:59; Status DC Bacitracin (Bacitracin Topical Pkt) 1 pkt 1X ONCE TP Last administered on 04/24/19at 20:14; Admin Dose 1 PKT; Start 04/24/19 at 19:45; Stop 04/24/19 at 19:59; Status DC Diphtheria/ Tetanus/Acell Pertussis (Boostrix) 0.5 ml ONCE ONCE VAX IM Last administered on 04/24/19at 20:15; Admin Dose 0.5 ML; Start 04/24/19 at 20:15; Stop 04/24/19 at 20:16; Status DC Lidocaine HCl 20 ml 1X ONCE IJ ; Start 04/24/19 at 20:30; Stop 04/24/19 at 20:32; Status DC Lidocaine/ Epinephrine (Xylocaine 1%-Epi 1:100,000) 20 ml STK-MED ONCE .ROUTE ; Start 04/24/19 at 20:35; Stop 04/24/19 at 20:36; Status DC Lidocaine/ Epinephrine (Xylocaine 1%-Epi 1:100,000) 20 ml 1X ONCE IJ ; Start 04/24/19 at 20:45; Stop 04/24/19 at 20:46; Status DC Gelatin (Gelfoam Size 100) 1 each 1X ONCE TP ; Start 04/24/19 at 21:30; Stop 04/24/19 at 21:31; Status DC Gelatin (Gelfoam Size 12-7mm) 1 each STK-MED ONCE .ROUTE ; Start 04/24/19 at 21:01; Stop 04/24/19 at 21:02; Status DC Active Scripts Active Eliquis (Apixaban) 5 Mg Tab.ds.pk 5 Mg PO BID 30 Days Reported Vitamin C (Ascorbic Acid) 500 Mg Capsule 1,000 Mg PO DAILY Lisinopril 2.5 Mg Tablet 1 Tab PO DAILY Metoprolol Tartrate 25 Mg Tablet 1 Tab PO BID Aspirin 81 Mg Tab.chew 81 Mg PO DAILYWSUP Oniberx-Dwsma-Xgq Complex Cplt (Gluc/Brandon-Msm#1/Vit C/Ryan/Bor) 1 Each Tablet 1 Each PO BID Vitamin E (Vitamin E (Dl,Tocopheryl Acet)) 400 Unit Capsule 400 Unit PO DAILYWSUP Centrum Silver Tablet (Multivits-Min/Fa/Lycopene/Lut) 1 Each Tablet 1 Each PO DAILY Beta Carotene (Beta-Carotene) 25,000 Unit Capsule 25,000 Unit PO DAILY Calcium (Calcium Carbonate) 500 Mg Tab.chew 500 Mg PO DAILY Lipitor (Atorvastatin Calcium) 10 Mg Tablet 2 Tab PO QHS Dragon Disclaimer This chart was dictated in whole or in part using Voice Recognition software in a busy, high-work load, and often noisy Emergency Department environment. It may contain unintended and wholly unrecognized errors or omissions. SVEN DELATORRE MD Apr 24, 2019 19:24
[2019-04-24] MEDS ORDERED: TETANUS AND DIPHTHERIA TOX/PF 0.5 ML VIAL. VAX IM ONE (19:45)
[2019-04-24] MEDS ORDERED: BACITRACIN ZINC TOPICAL OINT PACKET. TP ONE (19:45)
[2019-04-24] MEDS ORDERED: DIPHTH,PERTUSS(ACELL),TET TOX 0.5 ML DISP.SYRIN. VAX IM ONE (20:15)
[2019-04-24 20:16] VITALS: BP 136/78
[2019-04-24] MEDS ORDERED: LIDOCAINE 2% 20 ML VIAL. IJ ONE (20:30)
[2019-04-24] MEDS ORDERED: LIDOCAINE 1%/EPI 1:100,000 20 ML VIAL. ONE (20:35)
[2019-04-24] MEDS ORDERED: LIDOCAINE 1%/EPI 1:100,000 20 ML VIAL. IJ ONE (20:45)
[2019-04-24] MEDS ORDERED: GELATIN SPONGE SIZE 12-7MM SPONGE. ONE (21:01)
[2019-04-24] MEDS ORDERED: GELATIN SPONGE SIZE 100. TP ONE (21:30)
== END 2019-04-24 22:05 | disposition home or self-care (01) ==
LOC: ER 19:22
DX: I83.892 Varicose veins of left lower extremity with other complications (principal); I25.10 Atherosclerotic heart disease of native coronary artery without angina pectoris; I10 Essential (primary) hypertension
CPT/HCPCS: 90471; 90715; 99283

== ENCOUNTER → 2019-11-10 | Outpatient (CLI) | payer MEDICARE ==
[~2019-11-10] MED LIST changes: -BETA2500 PO; +VITA-54 PO; -VITA400C6 PO; +[UNRECOGNIZED DRUG - CODE] PO
== END | disposition home or self-care (01) ==
LOC: LAB 14:39
PROVIDERS: ATTEND Urology
DX: Z12.5 Encounter for screening for malignant neoplasm of prostate (principal)
CPT/HCPCS: G0103

== ENCOUNTER → 2020-01-05 | Outpatient (CLI) | payer MEDICARE ==
[2020-01-05 13:17] LABS: ALBUMIN 3.8 g/dL (3.4-5.0); CALCIUM 9.3 mg/dL (8.5-10.1); CREATININE 1.1 mg/dL (0.7-1.3); GFR 64.9; POTASSIUM 4.4 mmol/L (3.5-5.1)
[2020-01-05 13:20] LABS: BASO % 1 % (0-3); EOS # 0.2 x10^3/uL (0.0-0.7); EOS % 2 % (0-3); HEMATOCRIT 47.4 % (39.0-53.0); HEMOGLOBIN 15.5 g/dL (13.0-17.5); LYMPH # 1.7 x10^3/uL (1.0-4.8); LYMPH % 18 % (24-48); MEAN CORPUSCULAR HEMOGLOBIN 31 pg (25-35); MEAN CORPUSCULAR HGB CONC 33 g/dL (31-37); MEAN CORPUSCULAR VOLUME 95 fL (79-100); MONO # 0.6 x10^3/uL (0.0-1.1); MONO % 7 % (0-9); NEUT # 6.6 x10^3uL (1.8-7.7); NEUT % 72 % (31-73); PLATELET COUNT 180 x10^3/uL (140-400); RED BLOOD COUNT 4.97 x10^6/uL (4.30-5.70); RED CELL DISTRIBUTION WIDTH 13.7 % (11.5-14.5); WHITE BLOOD COUNT 9.1 x10^3/uL (4.0-11.0)
== END | disposition home or self-care (01) ==
LOC: LAB 12:10
PROVIDERS: ATTEND Surgery
DX: Z01.812 Encounter for preprocedural laboratory examination (principal); K40.91 Unilateral inguinal hernia, without obstruction or gangrene, recurrent
CPT/HCPCS: 36415; 80048; 82040; 85025

== ENCOUNTER → 2020-05-16 | Outpatient (CLI) | payer MEDICARE ==
--- NOTE | 2020-05-16 10:59 | CARD ---
MR#: [id number] Date of Study: 05/16/2020 Ordering Physician: DERRICK MARTINEZ, Referring Physician: DERRICK MARTINEZ, Tech: Michelle Bonilla APPROVED REPORT EXAM: Two-dimensional and M-mode echocardiogram with Doppler and color Doppler. Other Information Quality : AverageHR: 64bpm INDICATION Cardiomyopathy RISK FACTORS Hypertension 2D DIMENSIONS RVDd4.5 (2.9-3.5cm)Left Atrium(2D)4.0 (1.6-4.0cm) IVSd1.2 (0.7-1.1cm)Aortic Root(2D)3.6 (2.0-3.7cm) LVDd4.7 (3.9-5.9cm)LVOT Diameter2.4 (1.8-2.4cm) PWd1.1 (0.7-1.1cm)LVDs3.3 (2.5-4.0cm) FS (%) 30.0 %SV59.9 ml LVEF(%)57.2 (>50%) Aortic Valve AoV Peak Kemal.87.5cm/sAoV VTI22.1cm AO Peak GR.3.1mmHgLVOT Peak Kemal.68.9cm/s LVOT VTI 18.99cmAO Mean GR.2mmHg ANNELIESE (VMAX)3.28lm7LYF (VTI)3.94cm2 Mitral Valve MV E Valwnnsd55.8cm/sMV E Peak Gr.3mmHg MV DECEL [id number] A Wetkorvu04.1cm/s MV E Mean Gr.1mmHgE/A Ratio2.3 Pulmonary Valve PV Peak Nmsmgukb95.6cm/sPV Peak Grad.2mmHg Tricuspid Valve TR P. Mcwfptcv612xb/sRAP QPGEPFSV5kiCl TR Peak Gr.20nlVgKZVO21ilXw Pulmonary Vein S1 Ssfqdudk28.4cm/sD2 Xuxlqvav21.2cm/s LEFT VENTRICLE The left ventricle is normal size. There is borderline to mild concentric left ventricular hypertroph y. The left ventricular systolic function is normal. The Ejection Fraction is 50-55%. There is normal LV segmental wall motion. Tissue Doppler imaging reveals moderate left ventricular diastolic dysfunc tion. RIGHT VENTRICLE The right ventricle is borderline dilated. There is normal right ventricular wall thickness. The righ t ventricular systolic function is normal. ATRIA The left atrium is borderline dilated. The right atrium is mildly dilated. The interatrial septum is intact with no evidence for an atrial septal defect or patent foramen ovale as noted on 2-D or Dopple r imaging. AORTIC VALVE The aortic valve is thickened but opens well. Doppler and Color Flow revealed trace aortic regurgitat ion. Calculated aortic valve area is 4 cm2 with maximum pressure gradient of 42 mmHg and mean pressur e gradient of mmHg. MITRAL VALVE The mitral valve is normal in structure and function. There is no evidence of mitral valve prolapse. There is no mitral valve stenosis. Doppler and Color-flow revealed trace mitral regurgitation. TRICUSPID VALVE The tricuspid valve is normal in structure and function. Doppler and Color Flow revealed trace to mil d tricuspid regurgitation with an estimated PAP of 33 mmHg. There is no tricuspid valve stenosis. PULMONIC VALVE The pulmonic valve is not well visualized. Doppler and Color Flow revealed trace pulmonic valvular re gurgitation. GREAT VESSELS The aortic root is normal in size. The IVC is normal in size and collapses >50% with inspiration. PERICARDIAL EFFUSION There is no evidence of significant pericardial effusion. Critical Notification Critical Value: No <Conclusion> The left ventricular systolic function is normal. The Ejection Fraction is 50-55%. There is normal LV segmental wall motion. Trace mitral regurgitation. Trace to mild tricuspid regurgitation with an estimated PAP of 33 mmHg. There is no evidence of significant pericardial effusion. Signed by : Ethan Reina, Electronically Approved : 05/16/2020 10:58:13
== END ==
LOC: ECHO 09:24
PROVIDERS: ATTEND Internal Medicine Cardiovascular Disease
DX: I36.1 Nonrheumatic tricuspid (valve) insufficiency (principal); I11.9 Hypertensive heart disease without heart failure; B33.24 Viral cardiomyopathy
CPT/HCPCS: 93306

== ENCOUNTER 2021-05-13 06:12 | Emergency (ER) | payer MEDICARE ==
[~2021-05-13] VITALS: Ht 185.4 cm; Wt 106.0 kg
[~2021-05-13 06:12] MED LIST changes: +VITA-47 PO; -VITA-54 PO
[2021-05-13 06:26] VITALS: BP 153/88
[2021-05-13] MEDS ORDERED: LIDOCAINE (700MG/PATCH) PATCH. TD SCH (06:32)
--- NOTE | 2021-05-13 06:40 | PHYS DOC ---
Past History Past Medical History: A-Fib, CAD, High Cholesterol, Hypertension, TIA Past Surgical History: Other Additional Past Surgical Histo: HERNIA REPAIR Alcohol Use: Occasionally Drug Use: None General Adult EDM: Chief Complaint: UPPER EXTREMITY PAIN HPI: HPI: 80 yo M PMH HTN, HLD, TIA and afib (on eliquis-reports compliance) presents to the ed with c/o posterior left arm pain x1day stating "well it feels fine now,", relieved with to aspirin that he took last night before bed. States he came to the ed because "my would kill me if I didn't." Describes pain is localized, nonradiating, dull ache. Cannot recall any blunt trauma to the extremity, overuse/increase physical activity or strenuous exercise. Is right hand dominant. Denies any associated chest or back pain, nausea, vomiting, diaphoresis, radiculopathy, neck pain, joint pain/swelling, rash, fever, or sensory or motor deficits. No recent surgeries/procedures or IV placement. No associated swelling. Denies h/o cardiac stent or STEMI. Review of Systems: Review of Systems: Constitutional: Denies fever or chills Eyes: Denies change in visual acuity HENT: Denies nasal congestion or sore throat Respiratory: Denies cough or shortness of breath Cardiovascular: Denies chest pain or edema GI: Denies nausea, vomiting, Musculoskeletal: Denies back pain or joint pain Integument: Denies rash or diaphoresis Neurologic: Denies headache, neck pain, focal weakness or sensory changes Psychiatric: Denies depression or anxiety Allergies: Allergies: Allergies Coded Allergies Type Severity Reaction Last Updated Verified No Known Drug Allergies 06/28/16 No Physical Exam: PE: Constitutional: Well developed, well nourished, no acute distress, non-toxic appearance. HENT: Normocephalic, atraumatic, Eyes: EOMI, conjunctiva normal, no discharge. Neck: Normal range of motion, supple, no midline pain Cardiovascular: S1/2 present, Lungs & Thorax: Speaking in full sentences, bilateral equal chest rise, no tachypnea or increased work of breathing Skin: Warm, dry, no erythema, no rash. [] Back: No midline tenderness, no CVA tenderness. [] Extremities: No reproducible tenderness, no cyanosis, no extremity edema/swelling, equal radial pulses, location of pain is proximal posterior left arm with no palpable soft tissue masses, equal upper extremity muscle strength Neurologic: Alert and oriented X 3, normal motor function, normal sensory function, no focal deficits noted. [] Psychologic: Affect normal, judgement normal, mood normal. [] Current Patient Data: Vital Signs: Vital Signs Date Time Temp Pulse Resp B/P (MAP) Pulse Ox O2 Delivery O2 Flow Rate FiO2 05/13/21 06:26 97.6 64 18 153/88 97 Room Air EKG: EKG: Atrial fibrillation at 57 bpm, normal intervals, PVC was reviewed, left axis deviation, no ST elevations or ST depressions, patient with no active chest pain Radiology/Procedures: Radiology/Procedures: []IMAGING REPORT Signed PATIENT: DIAN LEVY ACCOUNT: [id number] : 1940 LOCATION: ER AGE: 80 SEX: M EXAM STATUS: DEP ER ORD. PHYSICIAN: RICHIE ALVARENGA DO REASON: left posterior arm pain PROCEDURE: HUMERUS LEFT EXAMINATION: Left humerus radiograph. VIEWS: 3 views COMPARISON: None INDICATION:80 years, Male, left posterior arm pain. FINDINGS: No acute fracture, dislocation or subluxation. No bone erosion or periosteal reaction. No soft tissue swelling. IMPRESSION: No acute osseous process. Electronically signed by: Rashida Cates MD (05/13/2021 7:29 AM) [id number] DICTATED AND SIGNED BY: RASHIDA CATES MD DATE: 05/13/21 0728 CC: KILEY VASQUEZ; RICHIE ALVARENGA DO ~MTH0 0 Heart Score: C/O Chest Pain: No Risk Factors: Risk Factors: DM, Current or recent (<one month) smoker, HTN, HLP, family history of CAD, obesity. Risk Scores: Score 0 - 3: 2.5% MACE over next 6 weeks - Discharge Home Score 4 - 6: 20.3% MACE over next 6 weeks - Admit for Clinical Observation Score 7 - 10: 72.7% MACE over next 6 weeks - Early Invasive Strategies Course & Med Decision Making: Course & Med Decision Making Pertinent Labs and Imaging studies reviewed. (See chart for details) Concern for atraumatic left posterior arm pain involving soft tissue, with normal range of motion, unremarkable physical exam with no associated joint involvement or chest discomfort (atypical chest pain considered, low suspicion). EKG with no active ischemia. Imaging unremarkable. Lidocaine patch applied in ED. Will recommend irqm-lvh-trvsodx analgesia and rice instructions. Will discharge home with strict ED return precautions were given for chest pain, back pain, neurologic deficits or syncope. Encouraged urgent outpatient follow-up with PMD. Life-threatening processes were considered but are low suspicion at this time, given history, physical exam and ED workup. Pt was educated on all prescription medications and adverse effects. All patient's questions were answered and pt was stable at time of discharge. Life/limb-threatening differential includes but is not limited to, trauma (fracture, dislocation, laceration, compartment syndrome, tendon or ligament injury), neurovascular injury or deficit -cva/tia, infection (osteomyelitis, abscess, cellulitis, septic arthritis, necrotizing fasciitis), deep vein thrombosis, renal/cardiac/liver disease, medication adverse effect, lymphedema/anasarca, vascular insufficiency or malignancy, I have spoken with the patient and/or caregivers. I explained the patient's condition, diagnoses and treatment plan based on the information available to me at this time. I have answered the patient and/or caregiver's questions and addressed any concerns. The patient and/or caregivers have a good understanding of patient's diagnosis, condition and treatment plan as can be expected at this point. Vital signs have been stable. Patient's condition is stable and appropriate for discharge from the emergency department. Patient will pursue further outpatient evaluation with primary care physician or other designated or consulting physician as outlined in the discharge instructions. The patient and/or caregivers are agreeable to this plan of care and follow-up instructions have been explained in detail. The patient and/or caregivers have received these instructions in written form and have expressed an understanding of the discharge instructions. The patient and/or caregivers are aware that any significant change of condition or worsening of symptoms should prompt immediate return to this or the closest emergency department or call to 911. Michelle Disclaimer: Michelle Disclaimer: This electronic medical record was generated, in whole or in part, using a voice recognition dictation system. Departure Departure: Impression: Primary Impression: Left upper arm pain Disposition: HOME / SELF CARE / HOMELESS Condition: STABLE Referrals: KILEY VASQUEZ (PCP) in 2-3 days for re-evaluation Patient Instructions: Musculoskeletal Pain, RICE - Routine Care for Injuries Additional Instructions: EMERGENCY DEPARTMENT GENERAL DISCHARGE INSTRUCTIONS Thank you for coming to [facility] (ED) today and trusting us with you care. We trust that you had a positivie experience in our Emergency Department. If you wish to speak to the department management, you may call the director at [phone]. YOUR FOLLOW UP INSTRUCTIONS ARE FOLLOWS: 1. Do you have a private Doctor? If you do not have a private doctor, please ask for a resource list of physicians or clinics that may be able to assist you with follow up care. 2. The Emergency Physician has interpreted your x-rays. The X-Ray specialist will also review them. If there is a change in the findings, you will be notified in 48 hours when at all possible. ADDITIONAL INSTRUCTIONS AND INFORMATION: 1. Your care today has been supervised by a physician who is specially trained in emergency care. Many problems require more than one evaluation for a complete diagnosis and treatment. We recommend that you schedule your follow up appointment as recommended to ensure complete treatment of you illness or injury. If you are unable to obtain follow up care and continue to have a problem, or if your condition worsens, we recommend that you return to the ED. 2. We are not able to safely determine your condition over the phone nor are we able to give sound medical advice over the phone. For these safety reasons, if you call for medical advice we will ask you to come to the ED for further evaluation. 3. If you have any questions regarding these discharge instructions please call the ED at [phone]. SAFETY INFORMATION: In the interest of safety, wellness, and injury prevention; we encourage you to wear your sealbelt, if you smoke; quite smoking, and we encourage family to use a protective helmet for bicycling and other sporting events that present an increased risk for head injury. IF YOUR SYMPTOMS WORSEN OR NEW SYMPTOMS DEVELOP, OR YOU HAVE CONCERNS ABOUT YOUR CONDITION; OR IF YOUR CONDITION WORSENS WHILE YOU ARE WAITING FOR YOUR FOLLOW UP APPOINTMENT; EITHER CONTACT YOUR PRIMARY CARE DOCTOR, THE PHYSICIAN WHOSE NAME AND NUMBER YOU WERE GIVEN, OR RETURN TO THE ED IMMEDIATELY. RICHIE ALVARENGA DO May 13, 2021 06:40
--- NOTE | 2021-05-13 07:31 | RAD ---
EXAMINATION: Left humerus radiograph. VIEWS: 3 views COMPARISON: None INDICATION:80 years, Male, left posterior arm pain. FINDINGS: No acute fracture, dislocation or subluxation. No bone erosion or periosteal reaction. No soft tissue swelling. IMPRESSION: No acute osseous process. Electronically signed by: Solitario Cates MD (05/13/2021 7:29 AM) [id number]
--- NOTE | 2021-05-13 12:31 | EKG ---
[address] [address] Test Date: 2021-05-13 Test Time: 06:46:19 Pat Name: DIAN LEVY Department: Room: Gender: M Senior Business Development Manager: : 1940 Requested By: RICHIE ALVARENGA Order Number: [id number] Reading MD: Measurements Intervals [place] Rate: 57 P: PA: QRS: -24 QRSD: 76 T: -37 QT: 388 QTc: 380 Interpretive Statements IRREGULAR RHYTHM, NO P-WAVE FOUND VENTRICULAR PREMATURE COMPLEX(ES) LEFTWARD AXIS QRS(T) CONTOUR ABNORMALITY CONSISTENT WITH INFERIOR INFARCT AGE UNDETERMINED ABNORMAL ECG RI6.02 No previous ECG available for comparison
[2021-05-13] MEDS ORDERED: PATCH REMOVAL. MC SCH (21:00)
== END 2021-05-13 07:00 | disposition home or self-care (01) ==
LOC: ER 06:12
DX: M79.602 Pain in left arm (principal); I10 Essential (primary) hypertension; E78.5 Hyperlipidemia, unspecified; Z86.73 Personal history of transient ischemic attack (TIA), and cerebral infarction without residual deficits
CPT/HCPCS: 73060; 93005; 99283

== ENCOUNTER → 2021-12-05 | Outpatient (CLI) | payer MEDICARE ==
[~2021-12-05] MED LIST changes: -LISI2.5T PO; +LISI2.5T12 PO
== END ==
LOC: LAB 14:18
PROVIDERS: ATTEND Urology
DX: C61 Malignant neoplasm of prostate (principal)
CPT/HCPCS: 36415; 84153; G0103

== ENCOUNTER → 2022-02-12 | Outpatient (CLI) | payer MEDICARE ==
[2022-02-12 10:25] LABS: BASO # 0.1 x10^3/uL (0.0-0.2); BASO % 1 % (0-3); EOS # 0.2 x10^3/uL (0.0-0.7); EOS % 3 % (0-3); HEMATOCRIT 47.5 % (39.0-53.0); HEMOGLOBIN 15.5 g/dL (13.0-17.5); LYMPH # 1.6 x10^3/uL (1.0-4.8); LYMPH % 21 % (24-48); MEAN CORPUSCULAR HEMOGLOBIN 31 pg (25-35); MEAN CORPUSCULAR HGB CONC 33 g/dL (31-37); MEAN CORPUSCULAR VOLUME 96 fL (79-100); MONO # 0.8 x10^3/uL (0.0-1.1); MONO % 11 % (0-9); NEUT # 4.9 x10^3uL (1.8-7.7); NEUT % 65 % (31-73); PLATELET COUNT 160 x10^3/uL (140-400); RED BLOOD COUNT 4.97 x10^6/uL (4.30-5.70); RED CELL DISTRIBUTION WIDTH 13.7 % (11.5-14.5); WHITE BLOOD COUNT 7.6 x10^3/uL (4.0-11.0)
[2022-02-12 10:33] LABS: ALBUMIN 4.1 g/dL (3.4-5.0); CALCIUM 9.9 mg/dL (8.5-10.1); CREATININE 1.2 mg/dL (0.7-1.3); GFR 58.4; PHOSPHORUS 3.7 mg/dL (2.6-4.7); POTASSIUM 4.8 mmol/L (3.5-5.1); URIC ACID 6.2 mg/dL (3.5-7.2)
[2022-02-12 10:40] LABS: BACTERIA,URINE 0 /HPF (0-FEW); CLARITY,URINE CLEAR; COLOR,URINE YELLOW; GLUCOSE,URINE NEG (NEG); NITRITE,URINE NEG (NEG); RBC,URINE RARE /HPF (0-2); SQUAMOUS EPITHELIAL CELL,UR OCC /LPF; UROBILINOGEN,URINE 0.2 mg/dL (0.2 mg/dL); WBC,URINE 0 /HPF (0-4)
[2022-02-13 14:24] LABS: CALCIUM PTH 10.4 mg/dL (8.6-10.2); CREATININE PTH 1.22 mg/dL (0.76-1.27); PTH INTACT 70 pg/mL (15-65)
== END ==
LOC: LAB 09:30
PROVIDERS: ATTEND Internal Medicine Nephrology
DX: E10.22 Type 1 diabetes mellitus with diabetic chronic kidney disease (principal); N18.2 Chronic kidney disease, stage 2 (mild); Z85.46 Personal history of malignant neoplasm of prostate
CPT/HCPCS: 36415; 80069; 81001; 83970; 84153; 84156; 84550; 85025; G0103